=== PATIENT | female | born 1990 | race Caucasian/White ===

== ENCOUNTER 2019-05-04 03:30 | Observation (INO) | payer BC, SELFPAY ==
--- NOTE | 2019-05-04 03:30 | OBADM ---
This patient, LORENZO FRANKLIN, admitted to the OB room Labor/Delivery/Recovery 107 for observation. Patient/family oriented to hospital policies and general routines including ID bracelet, bed and alarms, visiting hours, pain management, procedures, bathroom and other care routines, personal items, smoking policy, room service/diet, and visiting hours. Patient/Family are encouraged to report perceived risks to care and to ask questions if they do not understand what they are told or what they should do.
[2019-05-04 03:41] VITALS: RESP 20; TEMP 36.8
[2019-05-04 03:45] VITALS: BMI 39.5
[2019-05-04 04:00] VITALS: BP 106/75; PULSE 102
[2019-05-04 04:15] VITALS: BP 111/76; PULSE 104
[2019-05-04 04:30] VITALS: BP 106/74; PULSE 98
[2019-05-04 04:45] VITALS: BP 125/85
--- NOTE | 2019-05-08 08:00 | PM.OBTRLD ---
OB - Triage/Final Diagnosis Final Diagnosis (1) False labor: Code(s): O47.9 - False labor, unspecified Status: Acute
== END 2019-05-04 05:21 | disposition home or self-care (01) ==
PROVIDERS: Admitting Provider Obstetrics & Gynecology; PCP Obstetrics & Gynecology; Visit Provider Obstetrics & Gynecology
DX: O47.1 False labor at or after 37 completed weeks of gestation (principal); Z3A.38 38 weeks gestation of pregnancy
CPT/HCPCS: G0378; G0379

== ENCOUNTER 2019-05-08 06:35 | Observation (INO) | payer BC, SELFPAY ==
--- NOTE | 2019-05-08 06:35 | OBADM ---
This patient, Earlene Christopher, admitted to the OB room OB Post 115 for observation. Patient/family oriented to hospital policies and general routines including ID bracelet, bed and alarms, visiting hours, pain management, procedures, bathroom and other care routines, personal items, smoking policy, room service/diet, and visiting hours. Patient/Family are encouraged to report perceived risks to care and to ask questions if they do not understand what they are told or what they should do.
[2019-05-08 07:10] VITALS: TEMP 37.4
[2019-05-08 07:16] VITALS: BP 99/55; PULSE 106
[2019-05-08 07:26] LABS: Add Urine Microscopic? YES; Appearance Urine Clear (Clear); Bacteria Urine Trace /hpf; Bilirubin Urine Negative (Negative); Blood Urine 1+ (Negative); Color Urine Yellow (Yellow); Glucose Urine UA Negative (Negative); Ketones Urine 1+ mg/dL (Negative); Leukocyte Esterase Ur Negative LEU/UL (NEGATIVE); Mucus Urine Heavy /lpf; Nitrate Urine Negative (Negative); Protein Urine 1+ mg/dL (Negative); RBC Urine 21-50 /hpf (0-2); Specific Grav Ur 1.026 (1.001-1.035); Squamous Epithelial Cell Urine Many /hpf (Few); Urobilinogen Urine Negative mg/dL (<2.0)
[2019-05-08 07:31] VITALS: BP 118/80; PULSE 100
[2019-05-08 07:46] VITALS: BP 114/82; PULSE 107
[2019-05-08] MEDS: ONDANSETRON INJ 4 MG/2 ML VIAL IV PUSH (07:46)
[2019-05-08] MEDS: DEXTROSE 5%/LACTATED RINGERS 1,000 ML 999 ML IV CONT (07:47)
[2019-05-08 07:56] VITALS: BMI 39.6
[2019-05-08 10:50] VITALS: TEMP 37.1
[2019-05-08] MEDS: FAMOTIDINE 20 MG/2 ML VIAL IV PUSH (13:05)
--- NOTE | 2019-05-13 10:19 | P.PNOB_ITS ---
OB - Triage/Final Diagnosis Evaluation Laboratory results: Laboratory Tests 05/08/19 07:04 Urine Color Yellow Urine Appearance Clear Urine pH 5.0 Ur Specific [place] 1.026 Urine Protein 1+ H Urine Glucose (UA) Negative Urine Ketones 1+ H Ur Blood (Man) 1+ H Urine Nitrate Negative Urine Bilirubin Negative Urine Urobilinogen Negative Ur Leukocyte Esterase Negative Urine RBC 21-50 H Urine WBC 4-6 H Ur Squamous Epith Cells Many H Urine Bacteria Trace Urine Mucus Heavy H Final Diagnosis (1) Nausea and vomiting during : Code(s): O21.9 - Vomiting of , unspecified Status: Acute
== END 2019-05-08 14:05 | disposition home or self-care (01) ==
PROVIDERS: Admitting Provider Obstetrics & Gynecology; Visit Provider Obstetrics & Gynecology
DX: O21.2 Late vomiting of pregnancy (principal); Z3A.39 39 weeks gestation of pregnancy
CPT/HCPCS: 81001; 87086; 96374; 96375; G0378; G0379; J2405; J7121

== ENCOUNTER 2019-05-11 19:40 | Inpatient (IN) | payer BC, SELFPAY ==
[2019-05-11] VITALS (8 sets, daily range): BP systolic 99–116; BP diastolic 52–71; PULSE 77–93; BMI 38.6
[2019-05-11] MEDS: DINOPROSTONE 10 MG VAG INSERT VAGINAL (20:50)
[2019-05-11 20:52] LABS: Basophils Percent Auto 0.4 % (0.2-1.2); Eosinophils Absolute Auto 0.3 K/mm3 (0-0.3); Eosinophils Percent Auto 3.9 % (0-4.4); Hemoglobin 11.3 g/dL (12.0-15.0); Immature Granulocyte Absolute 0.04 K/mm3 (0.00-0.031); Immature Granulocyte Percent A 0.5 % (0-0.5); Lymphocytes Absolute Auto 2.15 K/mm3 (0.9-3.2); Lymphocytes Percent Auto 27.1 % (18.3-44.2); Mean Corpuscular HGB Conc 32.3 g/dl (32-36); Mean Corpuscular Hemoglobin 28.2 pg (26-34); Mean Corpuscular Volume 87.3 fl (80-100); Mean Platelet Volume 11.6 fl (7.4-10.4); Monocytes Absolute Auto 0.7 K/mm3 (0.1-0.6); Monocytes Percent Auto 9.3 % (2.6-8.5); Neutrophils Absolute Auto 4.7 K/mm3 (1.3-6.7); Neutrophils Percent Auto 58.8 % (45.5-73.1); Platelet Count Result 255 k/mm3 (150-375); Red Blood Count 4.01 M/mm3 (4.2-5.4); Red Cell Distribution Width 14.5 % (11.5-14.5); White Blood Count 7.9 K/mm3 (4.5-10.0)
--- NOTE | 2019-05-11 21:15 | LDADM ---
This patient, Earlene Christopher, was admitted to Labor/Delivery/Recovery 106 on 05/11/19 at 19:40. Plans for labor, pain management and were discussed with patient. Patient/family oriented to hospital policies and general routines including ID bracelet, bed and alarms, visiting hours, pain management, procedures, bathroom and other care routines, personal items, smoking policy, room service/diet and guest tray routines, security routines, and visiting hours. Patient/Family are encouraged to report perceived risks to care and to ask questions if they do not understand what they are told or what they should do. See OBIX for further documentation.
[2019-05-12] VITALS (161 sets, daily range): BP systolic 83–126; BP diastolic 46–108; PULSE 54–150; TEMP 36.8–37.3; O2SAT 78–100
[2019-05-12] MEDS: LACTATED RINGERS 1,000 ML 125 ML IV CONT ×3 (03:07→08:32)
[2019-05-12] MEDS: FAMOTIDINE 20 MG/2 ML VIAL IV PUSH (04:35)
--- NOTE | 2019-05-12 07:34 | WPDOBADMIT ---
Obstetrics - Admit Note Admission Note: record reviewed. No pertinent additions to the history and/or any subsequent changes in the physical findings that are not consistent with the expected course of the were found. Additions to the history and/or subsequent changes in the physical findings follow. G1 at 40+0 was kept overnight for induction of labor after coming in thinking she was in labor but was not. She had SROM at 0050. Cervix 2-3/60/-2. AROM of forebag with clear fluid noted. GBS negative. Continue pitocin.
--- NOTE | 2019-05-12 07:36 | PM.OBTRLD ---
OB - Triage/Final Diagnosis Evaluation Laboratory results: Laboratory Tests 05/11/19 05/11/19 20:44 20:44 WBC 7.9 RBC 4.01 L Hgb 11.3 L Hct 35.0 L MCV 87.3 MCH 28.2 MCHC 32.3 RDW 14.5 Plt Count 255 MPV 11.6 H Immature Gran % (Auto) 0.5 Neut % (Auto) 58.8 Lymph % (Auto) 27.1 [place] % (Auto) 9.3 H Eos % (Auto) 3.9 Baso % (Auto) 0.4 Lymph # (Auto) 2.15 [place] # (Auto) 0.7 H Eos # (Auto) 0.3 Baso # (Auto) 0.0 Abs Immat Gran (auto) 0.04 H Absolute Neuts (auto) 4.7 Absolute Nucleated RBC 0.0 Nucleated RBC % 0.0 Blood Type O Positive Antibody Screen Negative Vital signs: Vital Signs - 24 hr 05/11/19 21:00 05/11/19 21:15 05/11/19 21:30 Temperature Pulse Rate 93 80 87 Blood Pressure 112/71 114/71 109/63 05/11/19 21:45 05/11/19 22:00 05/11/19 22:15 Temperature Pulse Rate 89 77 88 Blood Pressure 116/68 100/52 L 100/61 05/11/19 22:30 05/11/19 22:45 05/12/19 01:00 Temperature 37.1 C Pulse Rate 80 78 84 Blood Pressure 100/54 L 99/59 L 124/77 05/12/19 03:00 05/12/19 03:14 05/12/19 03:30 Temperature 37.1 C Pulse Rate 77 77 Blood Pressure 114/55 L 103/62 05/12/19 04:00 05/12/19 04:30 05/12/19 05:00 Temperature 36.8 C Pulse Rate 72 72 77 Blood Pressure 104/69 109/66 103/71 05/12/19 05:30 05/12/19 06:00 05/12/19 06:30 Temperature 37.0 C Pulse Rate 78 67 Blood Pressure 104/66 93/53 L 05/12/19 07:00 05/12/19 07:30 Temperature 36.9 C Pulse Rate 78 Blood Pressure 112/50 L Final Diagnosis (1) Nausea and vomiting during : Code(s): O21.9 - Vomiting of , unspecified Status: Acute
--- NOTE | 2019-05-12 08:30 | WPDANESEPP ---
Anes - Eval Pre Procedure Procedure: labor epidural Date/Time: 05/12/19 08:30 Surgeon: Charli Preop Diagnosis: Labor pain Pre Op Diagnosis: induction of labor Patient Data Age: 28 Gender: F Height: 1.6 m Weight: 99 kg Last Vital Signs Temp 36.9 C 05/12/19 07:30 Pulse 72 05/12/19 08:28 BP 112/60 05/12/19 08:28 Pulse Ox 100 05/12/19 08:27 Allergies Allergy/AdvReac Type Severity Reaction Status Date / Time codeine Allergy Rash Verified 04/19/19 12:37 Home Medications Medication Instructions Recorded Confirmed Type PNV cmb#95-ferrous fumarate-FA 1 tablet PO DAILY 04/19/19 05/12/19 History [] aspirin [Adult Low Dose Aspirin] 81 mg PO DAILY 04/19/19 05/12/19 History ondansetron 4 mg PO Q6H PRN #10 tab-cap 05/08/19 05/12/19 Rx Laboratory Tests 05/11/19 05/11/19 05/11/19 20:44 20:44 20:44 WBC 7.9 K/mm3 K/mm3 (4.5-10.0) RBC 4.01 M/mm3 L M/mm3 (4.2-5.4) Hgb 11.3 g/dL L g/dL (12.0-15.0) Hct 35.0 % L % (37.0-47.0) MCV 87.3 fl fl (80-100) MCH 28.2 pg pg (26-34) MCHC 32.3 g/dl g/dl (32-36) RDW 14.5 % % (11.5-14.5) Plt Count 255 k/mm3 k/mm3 (150-375) MPV 11.6 fl H fl (7.4-10.4) Immature Gran % (Auto) 0.5 % % (0-0.5) Neut % (Auto) 58.8 % % (45.5-73.1) Lymph % (Auto) 27.1 % % (18.3-44.2) [place] % (Auto) 9.3 % H % (2.6-8.5) Eos % (Auto) 3.9 % % (0-4.4) Baso % (Auto) 0.4 % % (0.2-1.2) Lymph # (Auto) 2.15 K/mm3 K/mm3 (0.9-3.2) [place] # (Auto) 0.7 K/mm3 H K/mm3 (0.1-0.6) Eos # (Auto) 0.3 K/mm3 K/mm3 (0-0.3) Baso # (Auto) 0.0 K/mm3 K/mm3 (0.0-0.1) Abs Immat Gran (auto) 0.04 K/mm3 H K/mm3 (0.00-0.031) Absolute Neuts (auto) 4.7 K/mm3 K/mm3 (1.3-6.7) Absolute Nucleated RBC 0.0 K/mm3 K/mm3 (0.0-0.012) Nucleated RBC % 0.0 % % (0.0-0.2) RPR Pending Blood Type O Positive Antibody Screen Negative Patient hx anesthesia problems: none Family hx anesthesia problems: none [facility] Family History Family History (Updated 04/19/19 @ 12:40 by Steven Gomez RN) Grandparent Diabetes mellitus Social History Social History Smoking status: Never smoker Substance use: never Spiritual care concerns: No Exam Day of Procedure 05/12/19 08:30
[2019-05-12 09:23] LABS: Rapid Plasma Reagin Non-Reactive (NonReactive)
--- NOTE | 2019-05-12 16:12 | PM.OBPRVD ---
OB - Delivery Note Procedure Delivery date: 05/12/19 Procedure: events: Labor Induction Intrapartal events: None Induction method: per pitocin protocol Delivery monitor: external FHT Route of delivery: Laceration description: Perineal - 2nd Degree Delivery repair: vicryl (2-0) Estimated blood loss (mL): 167 Anesthesia type: Epidural Disposition: floor [place] Baby Date of : 05/12/19 Time of : 15:50 Weeks of gestation at delivery: 40 gender: Female Weight (pounds): 8 Weight (ounces): 15 presentation: vertex position: Left Occiput Anterior Placenta delivery description: Spontaneous cord vessel description: 3 Vessels score one minute: 8 score five minutes: 9
[2019-05-12] MEDS: WITCH HAZEL 40 PADS 1 PAD TOPICAL (17:32)
[2019-05-12] MEDS: BENZOCAINE 20% AER SPR (*SP) 56 GM CAN 1 SPRAY TOPICAL (17:32)
--- NOTE | 2019-05-12 20:09 | PC.NURSE ---
Patient transferred to post room #286 . Support person present. Oriented to unit, room, information board, rooming in, admission packet and security measures. Patient verbalizes understanding.
[2019-05-12] MEDS: IBUPROFEN 600 MG TABLET PO (20:55)
[2019-05-13] MEDS: ACETAMINOPHEN 325 MG TABLET 650 MG PO ×2 (00:21→21:34)
[2019-05-13] MEDS: IBUPROFEN 600 MG TABLET PO ×3 (03:33→16:28)
[2019-05-13 04:56] LABS: Hematocrit 33.8 % (37.0-47.0); Hemoglobin 10.8 g/dL (12.0-15.0)
[2019-05-13 06:49] VITALS: BP 94/53; PULSE 82; RESP 18; TEMP 36.6
--- NOTE | 2019-05-13 07:41 | P.PNOB_ITS ---
OB - PN: Subj Subjective Date/time seen: 05/13/19 07:41 Patient comments: no complaints, pain well controlled and other (Lochia similar to menses) [place] baby status: doing well OB - PN: Obj Data Labs CBC & Chem 7: 05/13/19 04:43 Labs: Laboratory Results - last 24 hr 05/11/19 05/11/19 05/13/19 20:44 20:44 04:43 Hgb 10.8 L Hct 33.8 L RPR Non-reactive Blood Type O Positive Antibody Screen Negative Crossmatch See Detail OB - PN A/P Plan day: 1 (s/p vaginal delivery, doing well) Plan: routine care Time Spent With Patient Time: Total time spent is greater than 50% in coordination of care (as documented) at patient's floor/unit and/or counseling patient: Exam Const: General: no acute distress GI: Inspection: other (Fundus firm and nontender at umbilicus) GI Palp: Yes Soft to palpation and No Tenderness to palpation present (GI) Extrem: General: no edema
--- NOTE | 2019-05-13 07:41 | PM.OBDSVD ---
DS: Diagnosis Admitting Diagnosis Admitting Diagnosis: Vomiting of , unspecified Discharge Diagnosis (1) : Code(s): Z34.90 - Encounter for supervision of normal , unspecified, unspecified trimester Status: Acute OB - DS: Summary OB Procedures : None OB Procedures Intrapartum: Spontaneous Vag Delivery OB Procedures: : None Peripartum Data Delivery Method: Natural Vaginal Laceration description: Perineal - 2nd Degree complications: none Status at Discharge Functional status at discharge: independent ambulation Overall status at discharge: patient is progressing back to baseline Time Spent with Patient Time attestation: Total time spent providing and/or coordinating discharge services: Time spent: Less than 30 minutes DS: Data Data Completed and Pending Labs on day of discharge: Labs from last 24 hours 05/13/19 05/11/19 05/11/19 04:43 20:44 20:44 Hgb 10.8 L Hct 33.8 L RPR Non-reactive Blood Type O Positive Antibody Screen Negative Crossmatch See Detail Discharge Plan Discharge Attending physician on discharge: Tania Augustin Discharging Clinician: Fatou Mitchell Anticipated Discharge Date/Time: 05/14/19 11:42 Patient Disposition: Home, Self-Care Activity: may shower and pelvic rest Diet: regular Patient Instructions: Antibiotic Form Stand Alone Forms: General Discharge Information Follow-up/Referrals: Tania Augustin MD [Physician] - 4 Weeks Discharge Medications: New ibuprofen 600 mg Tablet 600 mg PO Q6H PRN (Reason: Cramping) Qty: 60 RF: 0 Continued ondansetron 4 mg Tablet,Disintegrating 4 mg PO Q6H PRN (Reason: Nausea And Vomiting) Qty: 10 RF: 0 PNV cmb#95-ferrous fumarate-FA [] 28 mg iron- 800 mcg Tablet 1 tablet PO DAILY RF: 0 Discontinued aspirin [Adult Low Dose Aspirin] 81 mg Tablet,Delayed Release (Dr/Ec) 81 mg PO DAILY RF: 0 Date of admission: 05/11/19 19:40 Primary Care Provider: UNKNOWN,DOCTOR Admitting Provider: Tania Augustin Attending physician on admission: Tania Augustin
--- NOTE | 2019-05-13 08:13 | WPDANLDPN2 ---
Anes-Prog Note L&D Date/Time: 05/13/19 08:13 Comfortable throughout: labor and delivery Neuraxial method: epidural Neuro status: Neuro function grossly intact. Cardiovascular status: normal Respiratory status: normal Airway patency: baseline Mental status: baseline Post-Op hydration status: normal Vital Signs: Last Vital Signs Temp 36.6 C 05/13/19 06:49 Pulse 82 05/13/19 06:49 Resp 18 05/13/19 06:49 BP 94/53 L 05/13/19 06:49 Pulse Ox 99 05/12/19 15:49 Pain score (VAS): 0/10. Patient resting in bed at time of assessment, appears comfortable. Support person at bedside. I/O: Intake & Output 05/12/19 05/13/19 05/13/19 23:59 07:59 15:59 Intake Total 1999 Balance 1999 Post-procedural complaints: none Patient feedback: Patient satisfied with anesthetic care.
[2019-05-13] MEDS: WITCH HAZEL 40 PADS 1 PAD TOPICAL (09:16)
[2019-05-13] MEDS: BENZOCAINE 20% AER SPR (*SP) 56 GM CAN 1 SPRAY TOPICAL (09:16)
[2019-05-13] MEDS: MULTIVIT/MIN/PREN/FOL AC/IRON TABLET 1 TAB PO (09:17)
[2019-05-13] MEDS: DOCUSATE SODIUM 100 MG CAPSULE PO ×2 (09:17→16:27)
[2019-05-13] MEDS: LANOLIN (LANSINOH) 7.5 GM CREAM 1 APPLIC TOPICAL (09:17)
--- NOTE | 2019-05-13 13:00 | PC.NURSE ---
Consulted with patient, upon entering mother is attempting infant to breast. Mother reports she is able to independently latch without difficulties or discomfort. Reviewed infant feeding cues, frequencies, duration of feedings, feeding elimination flow sheet, and signs of adequate intake. Demonstrated stimulation techniques to wake infant for feeding. Assisted with to breast. Reviewed positioning/alignment in cross cradle, holding breast in U hold and guided asymmetrical latch on. Discussed rational for each. was able to latch correctly. nursed eagerly, with steady draws and frequent swallowing noted. Reviewed signs of a correct latch, effective nursing and suck swallow ratio. Infant was able to maintain latch without discomfort to mother. Nipple care reviewed. would draw back and slip to shallow latch while feeding. Demonstrated how to adjust latch more deeply while feeding. Advised to stimulate to keep nursing effectively for increased milk transfer. Mother reports she can feel is latched more deeply. Instructed mother to call out for RN assistance if she is unable to latch infant for feeding or she has discomfort with nursing. Instructed feeding should be initiated three hours from start of last feeding or if feeding cues are noted before. Mother voiced understanding of information shared.
[2019-05-14] MEDS: WITCH HAZEL 40 PADS 1 PAD TOPICAL (07:45)
[2019-05-14] MEDS: BENZOCAINE 20% AER SPR (*SP) 56 GM CAN 1 SPRAY TOPICAL (07:45)
[2019-05-14] MEDS: MULTIVIT/MIN/PREN/FOL AC/IRON TABLET 1 TAB PO (07:46)
[2019-05-14] MEDS: DOCUSATE SODIUM 100 MG CAPSULE PO (07:46)
[2019-05-14] MEDS: IBUPROFEN 600 MG TABLET PO (07:46)
--- NOTE | 2019-05-14 07:54 | PM.OBPNVD ---
OB - PN: Subj Subjective Date/time seen: 05/14/19 07:54 OB - PN: Obj Data Labs CBC & Chem 7: 05/13/19 04:43 OB - PN A/P Plan day: 2 Plan: discharge home Time Spent With Patient Time: Total time spent is greater than 50% in coordination of care (as documented) at patient's floor/unit and/or counseling patient: Review of Systems Review of Systems: All systems reviewed & are unremarkable except as noted in HPI and below Cardiovascular: Cardiovascular: Reports as per HPI Exam Const: General: comfortable Resp: Effort & Inspection: normal respiratory effort Psych: Appearance: grossly normal Affect: normal affect Attitude: cooperative Judgement: Good judgement present (Psych)
[2019-05-14 07:55] VITALS: BP 126/82; PULSE 86; RESP 18; TEMP 36.6; O2SAT 100
--- NOTE | 2019-05-14 07:55 | PM.OBDSVD ---
DS: Diagnosis Admitting Diagnosis Admitting Diagnosis: Vomiting of , unspecified OB - DS: Summary OB Procedures : None OB Procedures Intrapartum: Spontaneous Vag Delivery OB Procedures: : None Time Spent with Patient Time attestation: Total time spent providing and/or coordinating discharge services: Discharge Plan Discharge Attending physician on discharge: Tania Augustin Discharging Clinician: Fatou Mitchell Anticipated Discharge Date/Time: 05/14/19 11:42 Patient Disposition: Home, Self-Care Activity: may shower and pelvic rest Diet: regular Patient Instructions: Antibiotic Form Stand Alone Forms: General Discharge Information Follow-up/Referrals: Tania Augustin MD [Physician] - 4 Weeks Discharge Medications: New ibuprofen 600 mg Tablet 600 mg PO Q6H PRN (Reason: Cramping) Qty: 60 RF: 0 Continued ondansetron 4 mg Tablet,Disintegrating 4 mg PO Q6H PRN (Reason: Nausea And Vomiting) Qty: 10 RF: 0 PNV cmb#95-ferrous fumarate-FA [] 28 mg iron- 800 mcg Tablet 1 tablet PO DAILY RF: 0 Discontinued aspirin [Adult Low Dose Aspirin] 81 mg Tablet,Delayed Release (Dr/Ec) 81 mg PO DAILY RF: 0 Date of admission: 05/11/19 19:40 Primary Care Provider: UNKNOWN,DOCTOR Admitting Provider: Tania Augustin Attending physician on admission: Tania Augustin
--- NOTE | 2019-05-14 09:00 | PC.NURSE ---
Patient viewed the discharge video Mother & Baby Care, The First Two Weeks . Patient was given the opportunity and encouraged to ask questions. Patient verbalized understanding of information shared and has been given the mother/baby guide for home reference.
--- NOTE | 2019-05-14 11:11 | PC.NURSE ---
Self care and infant care discharge instructions given including follow up visit date and time. Pt. verbalized understanding. No questions or concerns verbalized. Very pleasant and cooperative. at side.
[2019-05-15 11:35] VITALS: BP 125/77; PULSE 65; RESP 18; TEMP 36.8
== END 2019-05-14 12:15 | disposition home or self-care (01) | DRG 807 ==
LOC: ANHLDR 05-12 13:31 → ANHOB2 05-12 19:42
PROVIDERS: Admitting Provider Obstetrics & Gynecology; Visit Provider Obstetrics & Gynecology
DX: O70.1 Second degree perineal laceration during delivery (principal); Z37.0 Single live birth; Z3A.40 40 weeks gestation of pregnancy
CPT/HCPCS: 36415; 84112; 85014; 85018; 85025; 86592; 86850; 86900; 86901; 86923; A9270; J2590; J2795; J7120